=== PATIENT | female | born 1940 | race African-American/Black ===

== ENCOUNTER 2018-03-29 11:54 | Inpatient (IN) ==
[2018-03-29] MEDS ORDERED: PROMETHAZINE 25 MG/1 ML VIAL IM PRN (13:24)
[2018-03-29] MEDS ORDERED: BISACODYL 5 MG TABLET PO PRN (13:24)
[2018-03-29] MEDS ORDERED: MAGNESIUM HYDROXIDE SUSP 30 ML UDCUP PO PRN (13:24)
[2018-03-29] MEDS ORDERED: ONDANSETRON 4 MG/2 ML VIAL IV PRN (13:24)
[2018-03-30] MEDS: methylPREDNISolone SOD SUC 40 MG/1 ML VIAL IV SCH ×4 (10:17→20:59)
[2018-03-30] MEDS: ENOXAPARIN 30 MG/0.3 ML SYRINGE SUBCUT SCH ×2 (10:17→10:26)
[2018-03-30] MEDS: SODIUM CHLORIDE 0.45% 1,000 ML IV SCH ×3 (10:17→18:50)
[2018-03-30] MEDS: FAMOTIDINE 20 MG TABLET PO SCH (10:17)
[2018-03-30] MEDS: DOCUSATE SODIUM 100 MG CAPSULE PO SCH ×2 (10:26→20:06)
[2018-03-30] MEDS: cefTRIAXone 1,000 MG in SYRINGE 1 EACH IV SCH (10:27)
[2018-03-30] MEDS: AZITHROMYCIN INJ 250 MG in SODIUM CHLORIDE 0.9% 250 ML IV SCH (12:01)
[2018-03-30 14:03] LABS: Basophils % 0.3 % (0.0-0.8); Eosinophils # 0.1 10*3/uL (0.0-0.87); Hematocrit 34.5 VOL% (35.7-47.0); Hemoglobin 12.1 GM/DL (12.0-16.0); Immature Granulocytes % 0.6 %; Immature Granulocytes Absolute 0.04 #; Lymphocytes # 0.7 10*3/uL (1.4-4.0); Lymphocytes % 11.7 % (21.3-54.2); Mean Corpuscular HGB Conc 35.1 GM/DL (32-36); Mean Corpuscular Hemoglobin 31 PG (27-34); Mean Corpuscular Volume 87.1 FL (87-102); Mean Platelet Volume 10.2 FL (9.6-12.0); Monocytes # 0.2 10*3/uL (0.11-0.8); Monocytes % 2.7 % (1.7-12.7); Neutrophils # 5.2 10*3/uL (1.4-7.4); Neutrophils % 83.7 % (38.7-73.9); Platelet Count 235 T/CUMM (130-400); Red Blood Count 3.96 MC/CUMM (3.8-5.5); Red Cell Distribution Width 13.1 % (9.3-17.3); White Blood Count 6.2 T/CUMM (4-12)
[2018-03-30 14:26] LABS: Albumin 3.1 G/DL (3.4-5.0); Bilirubin,Total 0.9 MG/DL (0.2-1.0); Calcium 9.1 MG/DL (8.5-10.1); Osmolality,Calculated 272.1 MOS/KG (273-304); Potassium 3.9 MMOL/L (3.5-5.1); Total Protein 7.2 G/DL (6.4-8.3)
[2018-03-30] MEDS: ALBUTEROL/IPRATROPIUM 3 ML NEB RESP TX SCH ×2 (14:26→19:28)
[2018-03-30] MEDS: MELATONIN 3 MG TABLET PO SCH (20:06)
[2018-03-30] MEDS: CARVEDILOL 25 MG TABLET PO SCH (20:06)
[2018-03-31] MEDS: ALBUTEROL/IPRATROPIUM 3 ML NEB RESP TX SCH ×4 (00:33→19:35)
[2018-03-31] MEDS: SODIUM CHLORIDE 0.45% 1,000 ML IV SCH ×2 (02:39→16:32)
[2018-03-31] MEDS: ACETAMINOPHEN 325 MG TABLET PO PRN (02:43)
[2018-03-31] MEDS: FAMOTIDINE 20 MG TABLET PO SCH (06:31)
[2018-03-31] MEDS ORDERED: IPRATROPIUM 500 MCG/2.5 ML NEB RESP TX SCH (07:00)
[2018-03-31] MEDS ORDERED: LEVOTHYROXINE 50 MCG TABLET PO SCH (07:00)
[2018-03-31 07:45] LABS: Calcium 9.1 MG/DL (8.5-10.1); Osmolality,Calculated 272.1 MOS/KG (273-304); Potassium 4.2 MMOL/L (3.5-5.1)
[2018-03-31] MEDS: CYANOCOBALAMIN 500 MCG TABLET PO SCH (09:27)
[2018-03-31] MEDS: cefTRIAXone 1,000 MG in SYRINGE 1 EACH IV SCH (09:27)
[2018-03-31] MEDS: amLODIPine 10 MG TABLET PO SCH (09:27)
[2018-03-31] MEDS: SPIRONOLACTONE 25 MG TABLET PO SCH (09:27)
[2018-03-31] MEDS: LORATADINE 10 MG TABLET PO SCH (09:27)
[2018-03-31] MEDS: CARVEDILOL 25 MG TABLET PO SCH ×2 (09:27→20:15)
[2018-03-31] MEDS: DOCUSATE SODIUM 100 MG CAPSULE PO SCH ×2 (09:27→20:15)
[2018-03-31] MEDS: methylPREDNISolone SOD SUC 40 MG/1 ML VIAL IV SCH ×3 (09:28→21:14)
[2018-03-31] MEDS: ENOXAPARIN 30 MG/0.3 ML SYRINGE SUBCUT SCH (09:28)
[2018-03-31] MEDS: AZITHROMYCIN INJ 250 MG in SODIUM CHLORIDE 0.9% 250 ML IV SCH (11:05)
[2018-03-31] MEDS: MELATONIN 3 MG TABLET PO SCH (20:15)
[2018-04-01] MEDS: ALBUTEROL/IPRATROPIUM 3 ML NEB RESP TX SCH ×4 (00:42→19:30)
[2018-04-01] MEDS: SODIUM CHLORIDE 0.45% 1,000 ML IV SCH (06:00)
[2018-04-01] MEDS: LEVOTHYROXINE 75 MCG TABLET PO SCH (06:00)
[2018-04-01 07:34] LABS: Albumin 2.8 G/DL (3.4-5.0); Bilirubin,Total 0.7 MG/DL (0.2-1.0); Calcium 9.1 MG/DL (8.5-10.1); Osmolality,Calculated 276.7 MOS/KG (273-304); Potassium 4.1 MMOL/L (3.5-5.1); Total Protein 6.4 G/DL (6.4-8.3)
[2018-04-01] MEDS: cefTRIAXone 1,000 MG in SYRINGE 1 EACH IV SCH (08:51)
[2018-04-01] MEDS: DOCUSATE SODIUM 100 MG CAPSULE PO SCH ×2 (08:51→20:38)
[2018-04-01] MEDS: ENOXAPARIN 30 MG/0.3 ML SYRINGE SUBCUT SCH (08:51)
[2018-04-01] MEDS: CYANOCOBALAMIN 500 MCG TABLET PO SCH (08:51)
[2018-04-01] MEDS: CARVEDILOL 25 MG TABLET PO SCH ×2 (08:52→20:38)
[2018-04-01] MEDS: FAMOTIDINE 20 MG TABLET PO SCH (08:52)
[2018-04-01] MEDS: amLODIPine 10 MG TABLET PO SCH (08:52)
[2018-04-01] MEDS: SPIRONOLACTONE 25 MG TABLET PO SCH (08:52)
[2018-04-01] MEDS: LORATADINE 10 MG TABLET PO SCH (08:52)
[2018-04-01] MEDS: CLINDAMYCIN INJ 900 MG in PREMIX 1 EACH IV SCH ×2 (10:16→17:44)
[2018-04-01] MEDS: methylPREDNISolone SOD SUC 40 MG/1 ML VIAL IV SCH ×2 (10:16→21:30)
[2018-04-01] MEDS: AZITHROMYCIN INJ 250 MG in SODIUM CHLORIDE 0.9% 250 ML IV SCH (12:45)
[2018-04-01] MEDS: MELATONIN 3 MG TABLET PO SCH (20:38)
[2018-04-02] MEDS: ALBUTEROL/IPRATROPIUM 3 ML NEB RESP TX SCH ×4 (00:16→20:14)
[2018-04-02] MEDS: CLINDAMYCIN INJ 900 MG in PREMIX 1 EACH IV SCH ×3 (02:19→19:47)
[2018-04-02] MEDS: methylPREDNISolone SOD SUC 40 MG/1 ML VIAL IV SCH ×3 (06:08→21:42)
[2018-04-02] MEDS: LEVOTHYROXINE 75 MCG TABLET PO SCH (06:08)
[2018-04-02 07:44] LABS: Hematocrit 33.1 VOL% (35.7-47.0); Hemoglobin 11.5 GM/DL (12.0-16.0); Immature Granulocytes % 0.9 %; Immature Granulocytes Absolute 0.05 #; Lymphocytes # 0.7 10*3/uL (1.4-4.0); Lymphocytes % 12.5 % (21.3-54.2); Mean Corpuscular HGB Conc 34.7 GM/DL (32-36); Mean Corpuscular Hemoglobin 30 PG (27-34); Mean Corpuscular Volume 86.6 FL (87-102); Mean Platelet Volume 10.2 FL (9.6-12.0); Monocytes # 0.3 10*3/uL (0.11-0.8); Monocytes % 5.8 % (1.7-12.7); Neutrophils # 4.6 10*3/uL (1.4-7.4); Neutrophils % 80.8 % (38.7-73.9); Platelet Count 258 T/CUMM (130-400); Red Blood Count 3.82 MC/CUMM (3.8-5.5); Red Cell Distribution Width 13.4 % (9.3-17.3); White Blood Count 5.7 T/CUMM (4-12)
[2018-04-02 08:10] LABS: Calcium 9.2 MG/DL (8.5-10.1); Osmolality,Calculated 279.7 MOS/KG (273-304); Potassium 4.3 MMOL/L (3.5-5.1)
[2018-04-02] MEDS: cefTRIAXone 1,000 MG in SYRINGE 1 EACH IV SCH (08:47)
[2018-04-02] MEDS: CYANOCOBALAMIN 500 MCG TABLET PO SCH (08:49)
[2018-04-02] MEDS: CARVEDILOL 25 MG TABLET PO SCH ×2 (08:49→21:24)
[2018-04-02] MEDS: ENOXAPARIN 30 MG/0.3 ML SYRINGE SUBCUT SCH (08:49)
[2018-04-02] MEDS: DOCUSATE SODIUM 100 MG CAPSULE PO SCH ×2 (08:49→21:24)
[2018-04-02] MEDS: LORATADINE 10 MG TABLET PO SCH (08:49)
[2018-04-02] MEDS: SPIRONOLACTONE 25 MG TABLET PO SCH (08:49)
[2018-04-02] MEDS: FAMOTIDINE 20 MG TABLET PO SCH (08:49)
[2018-04-02] MEDS: AZITHROMYCIN INJ 250 MG in SODIUM CHLORIDE 0.9% 250 ML IV SCH (13:49)
[2018-04-02] MEDS: ACETAMINOPHEN 325 MG TABLET PO PRN (14:04)
[2018-04-02] MEDS: MELATONIN 3 MG TABLET PO SCH (21:24)
[2018-04-03] MEDS: ALBUTEROL/IPRATROPIUM 3 ML NEB RESP TX SCH ×4 (00:17→19:27)
[2018-04-03] MEDS: CLINDAMYCIN INJ 900 MG in PREMIX 1 EACH IV SCH ×3 (02:06→18:02)
[2018-04-03] MEDS: LEVOTHYROXINE 75 MCG TABLET PO SCH (06:06)
[2018-04-03] MEDS: methylPREDNISolone SOD SUC 40 MG/1 ML VIAL IV SCH ×3 (06:07→21:14)
[2018-04-03] MEDS: ENOXAPARIN 30 MG/0.3 ML SYRINGE SUBCUT SCH (10:08)
[2018-04-03] MEDS: SPIRONOLACTONE 25 MG TABLET PO SCH (10:09)
[2018-04-03] MEDS: DOCUSATE SODIUM 100 MG CAPSULE PO SCH ×2 (10:09→21:14)
[2018-04-03] MEDS: CYANOCOBALAMIN 500 MCG TABLET PO SCH (10:09)
[2018-04-03] MEDS: cefTRIAXone 1,000 MG in SYRINGE 1 EACH IV SCH (10:09)
[2018-04-03] MEDS: FAMOTIDINE 20 MG TABLET PO SCH (10:09)
[2018-04-03] MEDS: CARVEDILOL 25 MG TABLET PO SCH ×2 (10:10→21:14)
[2018-04-03] MEDS: LORATADINE 10 MG TABLET PO SCH (10:10)
[2018-04-03] MEDS: AZITHROMYCIN INJ 250 MG in SODIUM CHLORIDE 0.9% 250 ML IV SCH (11:05)
[2018-04-03] MEDS: MELATONIN 3 MG TABLET PO SCH (21:14)
[2018-04-04] MEDS: ALBUTEROL/IPRATROPIUM 3 ML NEB RESP TX SCH ×4 (00:19→20:44)
[2018-04-04] MEDS: CLINDAMYCIN INJ 900 MG in PREMIX 1 EACH IV SCH ×3 (02:48→17:09)
[2018-04-04 05:53] LABS: Calcium 9.3 MG/DL (8.5-10.1); Osmolality,Calculated 274.8 MOS/KG (273-304); Potassium 4.2 MMOL/L (3.5-5.1)
[2018-04-04] MEDS: methylPREDNISolone SOD SUC 40 MG/1 ML VIAL IV SCH ×3 (06:14→21:43)
[2018-04-04] MEDS: LEVOTHYROXINE 75 MCG TABLET PO SCH (06:14)
[2018-04-04] MEDS: cefTRIAXone 1,000 MG in SYRINGE 1 EACH IV SCH (09:34)
[2018-04-04] MEDS: DOCUSATE SODIUM 100 MG CAPSULE PO SCH ×2 (09:34→21:43)
[2018-04-04] MEDS: CYANOCOBALAMIN 500 MCG TABLET PO SCH (09:34)
[2018-04-04] MEDS: LORATADINE 10 MG TABLET PO SCH (09:35)
[2018-04-04] MEDS: FAMOTIDINE 20 MG TABLET PO SCH (09:35)
[2018-04-04] MEDS: ENOXAPARIN 30 MG/0.3 ML SYRINGE SUBCUT SCH (09:35)
[2018-04-04] MEDS: SPIRONOLACTONE 25 MG TABLET PO SCH (09:35)
[2018-04-04] MEDS: CARVEDILOL 25 MG TABLET PO SCH ×2 (09:35→21:43)
[2018-04-04] MEDS: AZITHROMYCIN INJ 250 MG in SODIUM CHLORIDE 0.9% 250 ML IV SCH (12:19)
[2018-04-04] MEDS: MELATONIN 3 MG TABLET PO SCH (21:43)
[2018-04-05] MEDS: ALBUTEROL/IPRATROPIUM 3 ML NEB RESP TX SCH ×4 (01:45→19:12)
[2018-04-05] MEDS: CLINDAMYCIN INJ 900 MG in PREMIX 1 EACH IV SCH ×3 (02:51→18:20)
[2018-04-05 05:57] LABS: Calcium 9.5 MG/DL (8.5-10.1); Osmolality,Calculated 280.7 MOS/KG (273-304); Potassium 4.4 MMOL/L (3.5-5.1)
[2018-04-05] MEDS: methylPREDNISolone SOD SUC 40 MG/1 ML VIAL IV SCH ×3 (06:17→21:47)
[2018-04-05] MEDS ORDERED: MIDAZOLAM 2 MG/2 ML VIAL ONE (06:50)
[2018-04-05] MEDS ORDERED: PROMETHAZINE 25 MG/1 ML VIAL IM ONE (07:00)
[2018-04-05] MEDS ORDERED: GLYCOPYRROLATE 0.4 MG/2 ML VIAL IM ONE (07:00)
[2018-04-05] MEDS ORDERED: MEPERIDINE 50 MG/1 ML VIAL IM ONE (07:00)
[2018-04-05] MEDS ORDERED: LIDOCAINE 2% VISCOUS 100 ML BOTTLE SWISH/SPIT ONE (07:30)
[2018-04-05] MEDS ORDERED: LIDOCAINE 1% 20 ML VIAL MISC INJ ONE (07:30)
[2018-04-05] MEDS ORDERED: LIDOCAINE 2% 20 ML VIAL RESP TX ONE (07:30)
[2018-04-05] MEDS ORDERED: MIDAZOLAM 2 MG/2 ML VIAL IV ONE (07:30)
[2018-04-05] MEDS: FAMOTIDINE 20 MG TABLET PO SCH (09:07)
[2018-04-05] MEDS: CYANOCOBALAMIN 500 MCG TABLET PO SCH (09:07)
[2018-04-05] MEDS: DOCUSATE SODIUM 100 MG CAPSULE PO SCH ×2 (09:08→21:47)
[2018-04-05] MEDS: LEVOTHYROXINE 75 MCG TABLET PO SCH (09:08)
[2018-04-05] MEDS: SPIRONOLACTONE 25 MG TABLET PO SCH (09:09)
[2018-04-05] MEDS: LORATADINE 10 MG TABLET PO SCH (09:09)
[2018-04-05] MEDS: ENOXAPARIN 30 MG/0.3 ML SYRINGE SUBCUT SCH (09:10)
[2018-04-05] MEDS: CARVEDILOL 25 MG TABLET PO SCH ×2 (09:11→21:47)
[2018-04-05] MEDS: cefTRIAXone 1,000 MG in SYRINGE 1 EACH IV SCH (09:12)
[2018-04-05] MEDS: AZITHROMYCIN INJ 250 MG in SODIUM CHLORIDE 0.9% 250 ML IV SCH (15:40)
[2018-04-05] MEDS: MELATONIN 3 MG TABLET PO SCH (21:46)
[2018-04-06] MEDS: ALBUTEROL/IPRATROPIUM 3 ML NEB RESP TX SCH ×4 (00:46→19:46)
[2018-04-06] MEDS: CLINDAMYCIN INJ 900 MG in PREMIX 1 EACH IV SCH ×2 (02:23→16:44)
[2018-04-06] MEDS: methylPREDNISolone SOD SUC 40 MG/1 ML VIAL IV SCH ×3 (06:39→22:01)
[2018-04-06] MEDS: LEVOTHYROXINE 75 MCG TABLET PO SCH (06:39)
[2018-04-06 06:52] LABS: Bilirubin,Total 0.7 MG/DL (0.2-1.0); Calcium 9.5 MG/DL (8.5-10.1); Potassium 4.8 MMOL/L (3.5-5.1); Total Protein 6.4 G/DL (6.4-8.3)
[2018-04-06] MEDS: FAMOTIDINE 20 MG TABLET PO SCH (10:09)
[2018-04-06] MEDS: ENOXAPARIN 30 MG/0.3 ML SYRINGE SUBCUT SCH (10:09)
[2018-04-06] MEDS: LORATADINE 10 MG TABLET PO SCH (10:10)
[2018-04-06] MEDS: DOCUSATE SODIUM 100 MG CAPSULE PO SCH ×2 (10:10→22:02)
[2018-04-06] MEDS: SPIRONOLACTONE 25 MG TABLET PO SCH (10:10)
[2018-04-06] MEDS: CYANOCOBALAMIN 500 MCG TABLET PO SCH (10:10)
[2018-04-06] MEDS: CARVEDILOL 25 MG TABLET PO SCH (10:18)
[2018-04-06] MEDS: AZITHROMYCIN INJ 250 MG in SODIUM CHLORIDE 0.9% 250 ML IV SCH (12:36)
[2018-04-06] MEDS: cefTRIAXone 1,000 MG in SYRINGE 1 EACH IV SCH (12:42)
[2018-04-06] MEDS: MELATONIN 3 MG TABLET PO SCH (22:02)
[2018-04-06] MEDS: CARVEDILOL 12.5 MG TABLET PO SCH (22:17)
[2018-04-07] MEDS: ALBUTEROL/IPRATROPIUM 3 ML NEB RESP TX SCH ×3 (00:04→12:35)
[2018-04-07] MEDS: CARVEDILOL 25 MG TABLET PO SCH (00:24)
[2018-04-07] MEDS: CLINDAMYCIN INJ 900 MG in PREMIX 1 EACH IV SCH ×3 (00:43→15:30)
[2018-04-07] MEDS: methylPREDNISolone SOD SUC 40 MG/1 ML VIAL IV SCH ×2 (05:37→15:30)
[2018-04-07] MEDS: LEVOTHYROXINE 75 MCG TABLET PO SCH (05:37)
[2018-04-07] MEDS: ENOXAPARIN 30 MG/0.3 ML SYRINGE SUBCUT SCH (09:08)
[2018-04-07] MEDS: cefTRIAXone 1,000 MG in SYRINGE 1 EACH IV SCH (09:08)
[2018-04-07] MEDS: CYANOCOBALAMIN 500 MCG TABLET PO SCH (09:09)
[2018-04-07] MEDS: FAMOTIDINE 20 MG TABLET PO SCH (09:09)
[2018-04-07] MEDS: LORATADINE 10 MG TABLET PO SCH (09:09)
[2018-04-07] MEDS: CARVEDILOL 12.5 MG TABLET PO SCH (09:09)
[2018-04-07] MEDS: SPIRONOLACTONE 25 MG TABLET PO SCH (09:09)
[2018-04-07] MEDS: DOCUSATE SODIUM 100 MG CAPSULE PO SCH (09:09)
[2018-04-07] MEDS: AZITHROMYCIN INJ 250 MG in SODIUM CHLORIDE 0.9% 250 ML IV SCH (11:47)
[2018-04-07 17:31] VITALS: BP 134/65
== END 2018-04-07 17:35 | disposition home or self-care (01) | DRG 194 ==
LOC: N.5E 03-30 08:35 → N.TELEN 04-04 17:30 → N.5E 04-04 17:43
PROVIDERS: ADMIT Internal Medicine; ATTEND Internal Medicine

== ENCOUNTER 2018-04-20 09:33 | Inpatient (IN) ==
[2018-04-20] MEDS ORDERED: ALBUTEROL 2.5 MG/3 ML NEB RESP TX STA (10:21)
[2018-04-20] MEDS ORDERED: ONDANSETRON ODT 4 MG TABLET PO PRN (10:21)
[2018-04-20] MEDS ORDERED: methylPREDNISolone SOD SUC 125 MG/2 ML VIAL IV STA (11:30)
[2018-04-20] MEDS ORDERED: LEVOFLOXACIN INJ 500 MG in PREMIX 1 EACH IV STA (11:30)
[2018-04-20 11:51] LABS: Albumin 2.7 G/DL (3.4-5.0); Bilirubin,Total 1.1 MG/DL (0.2-1.0); Calcium 8.5 MG/DL (8.5-10.1); Osmolality,Calculated 230.2 MOS/KG (273-304); Potassium 3.9 MMOL/L (3.5-5.1); Total Protein 6.5 G/DL (6.4-8.3); Troponin I Only 0.045 NG/ML (0.00-0.045)
[2018-04-20 12:02] LABS: Basophils % 0.1 % (0.0-0.8); Eosinophils % 0.1 % (0.00-10.9); Hematocrit 35.7 VOL% (35.7-47.0); Immature Granulocytes % 1.9 %; Immature Granulocytes Absolute 0.25 #; Lymphocytes # 0.9 10*3/uL (1.4-4.0); Lymphocytes % 6.3 % (21.3-54.2); Mean Corpuscular HGB Conc 37.8 GM/DL (32-36); Mean Corpuscular Hemoglobin 30 PG (27-34); Mean Corpuscular Volume 79.9 FL (87-102); Mean Platelet Volume 9.8 FL (9.6-12.0); Monocytes # 0.9 10*3/uL (0.11-0.8); Neutrophils # 11.3 10*3/uL (1.4-7.4); Neutrophils % 84.6 % (38.7-73.9); Platelet Count 185 T/CUMM (130-400); Red Blood Count 4.47 MC/CUMM (3.8-5.5); Red Cell Distribution Width 13.1 % (9.3-17.3); White Blood Count 13.4 T/CUMM (4-12)
[2018-04-20 12:18] LABS: Hemoglobin 13.5 GM/DL (12.0-16.0)
[2018-04-20 12:25] LABS: Hypochromasia 1+; Ovalocytes Slight; Platelet Estimate Adequate
[2018-04-20] MEDS ORDERED: FUROSEMIDE 20 MG/2 ML VIAL IV ONE ×2 (17:35→21:00)
[2018-04-20] MEDS: SODIUM CHLORIDE 0.9% 1,000 ML IV SCH (17:45)
[2018-04-20] MEDS: AZITHROMYCIN INJ 250 MG in SODIUM CHLORIDE 0.9% 250 ML IV SCH (18:45)
[2018-04-20] MEDS: ALBUTEROL/IPRATROPIUM 3 ML NEB RESP TX SCH (18:57)
[2018-04-20] MEDS ORDERED: NON-FORMULARY MEDICATION (Umeclidinium Bromide [Incruse Ellipta] 1 PUFF) INH SCH (21:00)
[2018-04-20] MEDS: CARVEDILOL 25 MG TABLET PO SCH (21:28)
[2018-04-20] MEDS: MELATONIN 3 MG TABLET PO SCH (21:28)
[2018-04-20] MEDS: methylPREDNISolone SOD SUC 40 MG/1 ML VIAL IV SCH (21:28)
[2018-04-20] MEDS: DOCUSATE SODIUM 100 MG CAPSULE PO SCH (21:29)
[2018-04-21] MEDS: ALBUTEROL/IPRATROPIUM 3 ML NEB RESP TX SCH ×4 (00:40→19:21)
[2018-04-21] MEDS: methylPREDNISolone SOD SUC 40 MG/1 ML VIAL IV SCH ×3 (05:55→20:53)
[2018-04-21] MEDS: LEVOTHYROXINE 75 MCG TABLET PO SCH (05:58)
[2018-04-21 08:19] LABS: Calcium 7.9 MG/DL (8.5-10.1); Osmolality,Calculated 241.5 MOS/KG (273-304); Potassium 3.5 MMOL/L (3.5-5.1)
[2018-04-21] MEDS ORDERED: FUROSEMIDE 20 MG/2 ML VIAL IV SCH (09:00)
[2018-04-21] MEDS: DOCUSATE SODIUM 100 MG CAPSULE PO SCH ×2 (09:21→20:53)
[2018-04-21] MEDS: CARVEDILOL 25 MG TABLET PO SCH ×2 (09:21→20:53)
[2018-04-21] MEDS: PANTOPRAZOLE 40 MG TABLET PO SCH (09:21)
[2018-04-21] MEDS: LORATADINE 10 MG TABLET PO SCH (09:21)
[2018-04-21] MEDS: SODIUM CHLORIDE 0.9% 1,000 ML IV SCH ×2 (09:23→20:53)
[2018-04-21] MEDS: cefTRIAXone 1,000 MG in SYRINGE 1 EACH IV SCH (09:31)
[2018-04-21 13:33] LABS: Total Protein,Body Fluid 3.4 G/DL
[2018-04-21 14:45] LABS: Lymphocytes,Pleural Fluid 58 %; Monocytes,Pleural Fluid 27 %; Neutrophils,Pleural Fluid 15 %; RBC,Pleural Fluid 19088 T/CUMM
[2018-04-21] MEDS: AZITHROMYCIN INJ 250 MG in SODIUM CHLORIDE 0.9% 250 ML IV SCH (17:48)
[2018-04-21] MEDS: ACETAMINOPHEN 325 MG TABLET PO PRN (18:31)
[2018-04-21] MEDS: MELATONIN 3 MG TABLET PO SCH (20:52)
[2018-04-22] MEDS: ALBUTEROL/IPRATROPIUM 3 ML NEB RESP TX SCH ×4 (00:20→20:20)
[2018-04-22] MEDS: methylPREDNISolone SOD SUC 40 MG/1 ML VIAL IV SCH ×3 (05:16→21:06)
[2018-04-22] MEDS: LEVOTHYROXINE 75 MCG TABLET PO SCH (06:14)
[2018-04-22 07:37] LABS: Calcium 7.6 MG/DL (8.5-10.1); Osmolality,Calculated 261.1 MOS/KG (273-304); Potassium 3.1 MMOL/L (3.5-5.1)
[2018-04-22] MEDS: PANTOPRAZOLE 40 MG TABLET PO SCH (08:39)
[2018-04-22] MEDS: CARVEDILOL 25 MG TABLET PO SCH ×2 (08:39→21:05)
[2018-04-22] MEDS: LORATADINE 10 MG TABLET PO SCH (08:39)
[2018-04-22] MEDS: DOCUSATE SODIUM 100 MG CAPSULE PO SCH ×2 (08:39→21:05)
[2018-04-22] MEDS: cefTRIAXone 1,000 MG in SYRINGE 1 EACH IV SCH (08:40)
[2018-04-22] MEDS: POTASSIUM CHLORIDE RIDER 10 MEQ in PREMIX 1 EACH IV SCH ×4 (12:56→16:05)
[2018-04-22] MEDS: SUCRALFATE 1 GM/10 ML UDCUP PO SCH ×2 (14:14→15:55)
[2018-04-22] MEDS: AZITHROMYCIN INJ 250 MG in SODIUM CHLORIDE 0.9% 250 ML IV SCH (18:09)
[2018-04-22] MEDS: MELATONIN 3 MG TABLET PO SCH (21:05)
[2018-04-23] MEDS: ALBUTEROL/IPRATROPIUM 3 ML NEB RESP TX SCH ×4 (02:02→19:20)
[2018-04-23] MEDS: LEVOTHYROXINE 75 MCG TABLET PO SCH (05:44)
[2018-04-23 06:26] LABS: Calcium 7.8 MG/DL (8.5-10.1); Osmolality,Calculated 270.4 MOS/KG (273-304)
[2018-04-23] MEDS: methylPREDNISolone SOD SUC 40 MG/1 ML VIAL IV SCH ×2 (09:45→12:18)
[2018-04-23] MEDS: CARVEDILOL 25 MG TABLET PO SCH ×2 (09:45→20:39)
[2018-04-23] MEDS: DOCUSATE SODIUM 100 MG CAPSULE PO SCH ×2 (09:46→20:39)
[2018-04-23] MEDS: POTASSIUM CHLORIDE 20 MEQ TABLET PO SCH (09:46)
[2018-04-23] MEDS: cefTRIAXone 1,000 MG in SYRINGE 1 EACH IV SCH (09:46)
[2018-04-23] MEDS: LORATADINE 10 MG TABLET PO SCH (09:46)
[2018-04-23] MEDS: PANTOPRAZOLE 40 MG TABLET PO SCH (09:46)
[2018-04-23] MEDS: SUCRALFATE 1 GM/10 ML UDCUP PO SCH ×2 (09:47→16:37)
[2018-04-23] MEDS: AZITHROMYCIN INJ 250 MG in SODIUM CHLORIDE 0.9% 250 ML IV SCH (17:52)
[2018-04-23] MEDS ORDERED: MAGNESIUM HYDROXIDE SUSP 30 ML UDCUP PO ONE (18:01)
[2018-04-23] MEDS: MELATONIN 3 MG TABLET PO SCH (20:39)
[2018-04-24] MEDS: ALBUTEROL/IPRATROPIUM 3 ML NEB RESP TX SCH ×4 (00:03→19:11)
[2018-04-24] MEDS: LEVOTHYROXINE 75 MCG TABLET PO SCH (06:11)
[2018-04-24] MEDS: methylPREDNISolone SOD SUC 40 MG/1 ML VIAL IV SCH (08:38)
[2018-04-24] MEDS: LORATADINE 10 MG TABLET PO SCH (08:38)
[2018-04-24] MEDS: DOCUSATE SODIUM 100 MG CAPSULE PO SCH ×2 (08:38→21:15)
[2018-04-24] MEDS: POTASSIUM CHLORIDE 20 MEQ TABLET PO SCH (08:38)
[2018-04-24] MEDS: cefTRIAXone 1,000 MG in SYRINGE 1 EACH IV SCH (08:38)
[2018-04-24] MEDS: PANTOPRAZOLE 40 MG TABLET PO SCH (08:38)
[2018-04-24] MEDS: CARVEDILOL 25 MG TABLET PO SCH ×2 (08:38→21:15)
[2018-04-24] MEDS: SUCRALFATE 1 GM/10 ML UDCUP PO SCH ×2 (08:38→16:04)
[2018-04-24] MEDS: AZITHROMYCIN INJ 250 MG in SODIUM CHLORIDE 0.9% 250 ML IV SCH (18:11)
[2018-04-24] MEDS: MELATONIN 3 MG TABLET PO SCH (21:15)
[2018-04-25] MEDS: ALBUTEROL/IPRATROPIUM 3 ML NEB RESP TX SCH ×4 (00:42→19:21)
[2018-04-25 06:45] LABS: Calcium 8.8 MG/DL (8.5-10.1); Osmolality,Calculated 271.1 MOS/KG (273-304); Potassium 5.1 MMOL/L (3.5-5.1)
[2018-04-25] MEDS: LEVOTHYROXINE 75 MCG TABLET PO SCH (07:01)
[2018-04-25] MEDS: LORATADINE 10 MG TABLET PO SCH (08:15)
[2018-04-25] MEDS: SUCRALFATE 1 GM/10 ML UDCUP PO SCH ×2 (08:15→16:25)
[2018-04-25] MEDS: CARVEDILOL 25 MG TABLET PO SCH ×2 (08:15→21:03)
[2018-04-25] MEDS: DOCUSATE SODIUM 100 MG CAPSULE PO SCH ×2 (08:15→21:03)
[2018-04-25] MEDS: PANTOPRAZOLE 40 MG TABLET PO SCH (08:15)
[2018-04-25] MEDS: cefTRIAXone 1,000 MG in SYRINGE 1 EACH IV SCH (08:16)
[2018-04-25] MEDS: methylPREDNISolone SOD SUC 40 MG/1 ML VIAL IV SCH (08:22)
[2018-04-25] MEDS: POTASSIUM CHLORIDE 20 MEQ TABLET PO SCH (10:45)
[2018-04-25] MEDS: AZITHROMYCIN INJ 250 MG in SODIUM CHLORIDE 0.9% 250 ML IV SCH (17:45)
[2018-04-25] MEDS: MELATONIN 3 MG TABLET PO SCH (21:03)
[2018-04-26] MEDS: ALBUTEROL/IPRATROPIUM 3 ML NEB RESP TX SCH ×4 (00:12→19:45)
[2018-04-26] MEDS: LEVOTHYROXINE 75 MCG TABLET PO SCH (06:49)
[2018-04-26] MEDS: SUCRALFATE 1 GM/10 ML UDCUP PO SCH ×2 (06:51→17:52)
[2018-04-26] MEDS: DOCUSATE SODIUM 100 MG CAPSULE PO SCH ×2 (09:46→21:00)
[2018-04-26] MEDS: POTASSIUM CHLORIDE 20 MEQ TABLET PO SCH (09:47)
[2018-04-26] MEDS: CARVEDILOL 25 MG TABLET PO SCH ×2 (10:39→21:00)
[2018-04-26] MEDS: LORATADINE 10 MG TABLET PO SCH (10:40)
[2018-04-26] MEDS: PANTOPRAZOLE 40 MG TABLET PO SCH (10:40)
[2018-04-26] MEDS: cefTRIAXone 1,000 MG in SYRINGE 1 EACH IV SCH (11:04)
[2018-04-26] MEDS: ACETAMINOPHEN 325 MG TABLET PO PRN ×2 (11:04→17:54)
[2018-04-26] MEDS: MEPERIDINE 25 MG/1 ML VIAL IV PRN (14:05)
[2018-04-26] MEDS: AZITHROMYCIN INJ 250 MG in SODIUM CHLORIDE 0.9% 250 ML IV SCH (18:48)
[2018-04-26] MEDS: MELATONIN 3 MG TABLET PO SCH (21:00)
[2018-04-27] MEDS: ALBUTEROL/IPRATROPIUM 3 ML NEB RESP TX SCH ×4 (00:47→19:10)
[2018-04-27] MEDS: LEVOTHYROXINE 75 MCG TABLET PO SCH (06:18)
[2018-04-27] MEDS: SUCRALFATE 1 GM/10 ML UDCUP PO SCH ×2 (09:16→16:32)
[2018-04-27] MEDS: cefTRIAXone 1,000 MG in SYRINGE 1 EACH IV SCH (09:16)
[2018-04-27] MEDS: POTASSIUM CHLORIDE 20 MEQ TABLET PO SCH (09:17)
[2018-04-27] MEDS: PANTOPRAZOLE 40 MG TABLET PO SCH (09:18)
[2018-04-27] MEDS: LORATADINE 10 MG TABLET PO SCH (09:18)
[2018-04-27] MEDS: CARVEDILOL 25 MG TABLET PO SCH ×2 (09:18→21:23)
[2018-04-27] MEDS: DOCUSATE SODIUM 100 MG CAPSULE PO SCH ×2 (09:18→21:23)
[2018-04-27] MEDS ORDERED: DOXYCYCLINE HYCLATE INJ 200 MG, LIDOCAINE 1% INJ 20 ML in STERILE WATER INJ 40 ML INTRAPLEUR ONE (10:00)
[2018-04-27] MEDS: MEPERIDINE 25 MG/1 ML VIAL IV PRN (10:11)
[2018-04-27] MEDS: AZITHROMYCIN INJ 250 MG in SODIUM CHLORIDE 0.9% 250 ML IV SCH (18:24)
[2018-04-27] MEDS: MELATONIN 3 MG TABLET PO SCH (21:23)
[2018-04-28] MEDS: ALBUTEROL/IPRATROPIUM 3 ML NEB RESP TX SCH ×4 (00:40→19:39)
[2018-04-28] MEDS: LEVOTHYROXINE 75 MCG TABLET PO SCH (06:03)
[2018-04-28 06:35] LABS: Calcium 8.7 MG/DL (8.5-10.1); Potassium 3.4 MMOL/L (3.5-5.1)
[2018-04-28 08:15] LABS: Eosinophils # 0.1 10*3/uL (0.0-0.87); Eosinophils % 0.8 % (0.00-10.9); Hematocrit 30.6 VOL% (35.7-47.0); Hemoglobin 10.4 GM/DL (12.0-16.0); Immature Granulocytes Absolute 0.17 #; Lymphocytes # 0.6 10*3/uL (1.4-4.0); Lymphocytes % 7.3 % (21.3-54.2); Mean Corpuscular Hemoglobin 30 PG (27-34); Mean Corpuscular Volume 87.2 FL (87-102); Mean Platelet Volume 10.4 FL (9.6-12.0); Monocytes # 0.8 10*3/uL (0.11-0.8); Monocytes % 9.4 % (1.7-12.7); Neutrophils # 6.8 10*3/uL (1.4-7.4); Neutrophils % 80.5 % (38.7-73.9); Red Blood Count 3.51 MC/CUMM (3.8-5.5); Red Cell Distribution Width 14.2 % (9.3-17.3); White Blood Count 8.4 T/CUMM (4-12)
[2018-04-28 08:17] LABS: Platelet Count 84 T/CUMM (130-400)
[2018-04-28 08:44] LABS: Hypochromasia 2+; Microcytosis 2+
[2018-04-28] MEDS ORDERED: methylPREDNISolone SOD SUC 40 MG/1 ML VIAL IV ONE (08:54)
[2018-04-28] MEDS ORDERED: methylPREDNISolone SOD SUC 40 MG/1 ML VIAL ONE (08:55)
[2018-04-28] MEDS ORDERED: ALBUTEROL/IPRATROPIUM 3 ML NEB RESP TX ONE (08:56)
[2018-04-28] MEDS ORDERED: MORPHINE 4 MG/1 ML VIAL IV ONE (09:19)
[2018-04-28] MEDS ORDERED: MORPHINE 4 MG/1 ML VIAL ONE (09:21)
[2018-04-28] MEDS: CARVEDILOL 25 MG TABLET PO SCH ×2 (10:06→20:37)
[2018-04-28] MEDS: PANTOPRAZOLE 40 MG TABLET PO SCH (10:30)
[2018-04-28] MEDS: DOCUSATE SODIUM 100 MG CAPSULE PO SCH ×2 (10:30→20:37)
[2018-04-28] MEDS: cefTRIAXone 1,000 MG in SYRINGE 1 EACH IV SCH (10:31)
[2018-04-28] MEDS: LORATADINE 10 MG TABLET PO SCH (10:31)
[2018-04-28] MEDS: POTASSIUM CHLORIDE 20 MEQ TABLET PO SCH (10:31)
[2018-04-28] MEDS: SUCRALFATE 1 GM/10 ML UDCUP PO SCH ×2 (10:34→16:32)
[2018-04-28] MEDS: AZITHROMYCIN INJ 250 MG in SODIUM CHLORIDE 0.9% 250 ML IV SCH (17:59)
[2018-04-28] MEDS: MELATONIN 3 MG TABLET PO SCH (20:37)
[2018-04-29] MEDS: ALBUTEROL/IPRATROPIUM 3 ML NEB RESP TX SCH ×4 (01:01→19:05)
[2018-04-29] MEDS: LEVOTHYROXINE 75 MCG TABLET PO SCH (06:58)
[2018-04-29] MEDS: CARVEDILOL 25 MG TABLET PO SCH ×2 (09:06→21:16)
[2018-04-29] MEDS: DOCUSATE SODIUM 100 MG CAPSULE PO SCH ×2 (09:06→21:16)
[2018-04-29] MEDS: POTASSIUM CHLORIDE 20 MEQ TABLET PO SCH (09:06)
[2018-04-29] MEDS: LORATADINE 10 MG TABLET PO SCH (09:06)
[2018-04-29] MEDS: PANTOPRAZOLE 40 MG TABLET PO SCH (09:06)
[2018-04-29] MEDS: SUCRALFATE 1 GM/10 ML UDCUP PO SCH ×2 (09:07→15:49)
[2018-04-29] MEDS ORDERED: LACTULOSE 20 GM/30 ML UDCUP PO PRN (09:21)
[2018-04-29] MEDS: cefTRIAXone 1,000 MG in SYRINGE 1 EACH IV SCH (15:49)
[2018-04-29] MEDS: AZITHROMYCIN INJ 250 MG in SODIUM CHLORIDE 0.9% 250 ML IV SCH (17:56)
[2018-04-29] MEDS: MELATONIN 3 MG TABLET PO SCH (21:16)
[2018-04-30] MEDS: ALBUTEROL/IPRATROPIUM 3 ML NEB RESP TX SCH ×4 (00:49→19:41)
[2018-04-30] MEDS: LEVOTHYROXINE 75 MCG TABLET PO SCH (06:49)
[2018-04-30] MEDS: CARVEDILOL 25 MG TABLET PO SCH ×2 (09:42→20:42)
[2018-04-30] MEDS: POTASSIUM CHLORIDE 20 MEQ TABLET PO SCH (09:42)
[2018-04-30] MEDS: DOCUSATE SODIUM 100 MG CAPSULE PO SCH ×2 (09:42→20:41)
[2018-04-30] MEDS: LORATADINE 10 MG TABLET PO SCH (09:42)
[2018-04-30] MEDS: PANTOPRAZOLE 40 MG TABLET PO SCH (09:42)
[2018-04-30] MEDS: SUCRALFATE 1 GM/10 ML UDCUP PO SCH ×2 (09:42→15:51)
[2018-04-30] MEDS: cefTRIAXone 1,000 MG in SYRINGE 1 EACH IV SCH (15:51)
[2018-04-30] MEDS: AZITHROMYCIN INJ 250 MG in SODIUM CHLORIDE 0.9% 250 ML IV SCH (18:33)
[2018-04-30] MEDS: MELATONIN 3 MG TABLET PO SCH (20:41)
[2018-05-01] MEDS: ALBUTEROL/IPRATROPIUM 3 ML NEB RESP TX SCH ×5 (00:49→23:53)
[2018-05-01 03:48] LABS: Basophils % 0.1 % (0.0-0.8); Eosinophils % 0.4 % (0.00-10.9); Hematocrit 29.1 VOL% (35.7-47.0); Hemoglobin 9.8 GM/DL (12.0-16.0); Immature Granulocytes % 1.7 %; Immature Granulocytes Absolute 0.12 #; Lymphocytes # 0.5 10*3/uL (1.4-4.0); Lymphocytes % 6.9 % (21.3-54.2); Mean Corpuscular HGB Conc 33.7 GM/DL (32-36); Mean Corpuscular Hemoglobin 30 PG (27-34); Mean Corpuscular Volume 89.3 FL (87-102); Monocytes # 0.5 10*3/uL (0.11-0.8); Monocytes % 6.4 % (1.7-12.7); Neutrophils % 84.5 % (38.7-73.9); Platelet Count 70 T/CUMM (130-400); Red Blood Count 3.26 MC/CUMM (3.8-5.5); Red Cell Distribution Width 14.3 % (9.3-17.3); White Blood Count 7.1 T/CUMM (4-12)
[2018-05-01 04:00] LABS: Calcium 8.4 MG/DL (8.5-10.1); Osmolality,Calculated 279.4 MOS/KG (273-304); Potassium 3.9 MMOL/L (3.5-5.1)
[2018-05-01 05:33] LABS: Band Neutrophils 1 % (0-10); Lymphocytes 6 % (20-55); Platelet Estimate Decreased; Segmented Neutrophils 89 % (50-85); Total Cells Counted 100
[2018-05-01] MEDS: LEVOTHYROXINE 75 MCG TABLET PO SCH (06:08)
[2018-05-01] MEDS: MEPERIDINE 25 MG/1 ML VIAL IV PRN (08:51)
[2018-05-01] MEDS: SUCRALFATE 1 GM/10 ML UDCUP PO SCH ×2 (08:52→16:17)
[2018-05-01] MEDS: CARVEDILOL 25 MG TABLET PO SCH ×2 (08:58→20:42)
[2018-05-01] MEDS: LORATADINE 10 MG TABLET PO SCH (08:58)
[2018-05-01] MEDS: POTASSIUM CHLORIDE 20 MEQ TABLET PO SCH (08:58)
[2018-05-01] MEDS: PANTOPRAZOLE 40 MG TABLET PO SCH (08:58)
[2018-05-01] MEDS: DOCUSATE SODIUM 100 MG CAPSULE PO SCH ×2 (08:58→20:42)
[2018-05-01] MEDS: cefTRIAXone 1,000 MG in SYRINGE 1 EACH IV SCH (16:17)
[2018-05-01] MEDS: AZITHROMYCIN INJ 250 MG in SODIUM CHLORIDE 0.9% 250 ML IV SCH (18:46)
[2018-05-01] MEDS: MELATONIN 3 MG TABLET PO SCH (20:42)
[2018-05-02] MEDS: LEVOTHYROXINE 75 MCG TABLET PO SCH (06:00)
[2018-05-02] MEDS: ALBUTEROL/IPRATROPIUM 3 ML NEB RESP TX SCH ×3 (07:55→19:28)
[2018-05-02] MEDS: PANTOPRAZOLE 40 MG TABLET PO SCH (09:46)
[2018-05-02] MEDS: POTASSIUM CHLORIDE 20 MEQ TABLET PO SCH (09:46)
[2018-05-02] MEDS: CARVEDILOL 25 MG TABLET PO SCH ×2 (09:46→20:25)
[2018-05-02] MEDS: SUCRALFATE 1 GM/10 ML UDCUP PO SCH ×2 (09:46→17:02)
[2018-05-02] MEDS: DOCUSATE SODIUM 100 MG CAPSULE PO SCH ×2 (09:46→20:25)
[2018-05-02] MEDS: LORATADINE 10 MG TABLET PO SCH (09:46)
[2018-05-02] MEDS: MEPERIDINE 25 MG/1 ML VIAL IV PRN (14:41)
[2018-05-02] MEDS: cefTRIAXone 1,000 MG in SYRINGE 1 EACH IV SCH (17:01)
[2018-05-02] MEDS: MEGESTROL 400 MG/10 ML UDCUP PO SCH (17:03)
[2018-05-02] MEDS: AZITHROMYCIN INJ 250 MG in SODIUM CHLORIDE 0.9% 250 ML IV SCH (18:32)
[2018-05-02] MEDS: MELATONIN 3 MG TABLET PO SCH (20:25)
[2018-05-02] MEDS ORDERED: MEGESTROL 400 MG/10 ML UDCUP PO SCH (21:00)
[2018-05-03] MEDS: ALBUTEROL/IPRATROPIUM 3 ML NEB RESP TX SCH ×4 (01:00→19:14)
[2018-05-03] MEDS: LEVOTHYROXINE 75 MCG TABLET PO SCH (06:05)
[2018-05-03] MEDS: MEPERIDINE 25 MG/1 ML VIAL IV PRN ×2 (06:43→17:13)
[2018-05-03] MEDS: CARVEDILOL 25 MG TABLET PO SCH ×2 (11:00→21:04)
[2018-05-03] MEDS: POTASSIUM CHLORIDE 20 MEQ TABLET PO SCH (11:00)
[2018-05-03] MEDS: LORATADINE 10 MG TABLET PO SCH (11:00)
[2018-05-03] MEDS: MEGESTROL 400 MG/10 ML UDCUP PO SCH ×2 (11:01→16:39)
[2018-05-03] MEDS: SUCRALFATE 1 GM/10 ML UDCUP PO SCH ×2 (11:01→16:39)
[2018-05-03] MEDS: PANTOPRAZOLE 40 MG TABLET PO SCH (11:01)
[2018-05-03] MEDS: DOCUSATE SODIUM 100 MG CAPSULE PO SCH ×2 (11:01→21:04)
[2018-05-03] MEDS: MELATONIN 3 MG TABLET PO SCH (21:04)
[2018-05-04] MEDS: ALBUTEROL/IPRATROPIUM 3 ML NEB RESP TX SCH ×4 (00:27→19:24)
[2018-05-04] MEDS: LEVOTHYROXINE 75 MCG TABLET PO SCH (05:39)
[2018-05-04] MEDS: MEPERIDINE 25 MG/1 ML VIAL IV PRN (10:33)
[2018-05-04] MEDS ORDERED: MIDAZOLAM 2 MG/2 ML VIAL IV ONE (10:39)
[2018-05-04] MEDS ORDERED: fentaNYL 100 MCG/2 ML VIAL IV ONE (10:39)
[2018-05-04] MEDS ORDERED: ceFAZolin 1,000 MG in SYRINGE 1 EACH IV ONE (10:39)
[2018-05-04 12:18] LABS: INR 1.2; PT Patient Result 12.9 SECS
[2018-05-04] MEDS: SUCRALFATE 1 GM/10 ML UDCUP PO SCH ×3 (12:32→16:26)
[2018-05-04] MEDS: MEGESTROL 400 MG/10 ML UDCUP PO SCH ×3 (12:32→16:26)
[2018-05-04] MEDS: DOCUSATE SODIUM 100 MG CAPSULE PO SCH ×2 (12:33→20:42)
[2018-05-04] MEDS ORDERED: LIDOCAINE 1%/EPI INJ 20 ML VIAL ONE (13:36)
[2018-05-04] MEDS ORDERED: fentaNYL 100 MCG/2 ML VIAL ONE (13:36)
[2018-05-04] MEDS ORDERED: MORPHINE 10 MG/1 ML VIAL ONE (14:06)
[2018-05-04] MEDS: MORPHINE 4 MG/1 ML VIAL IV PRN (14:27)
[2018-05-04] MEDS: POTASSIUM CHLORIDE 20 MEQ TABLET PO SCH ×2 (16:20→16:26)
[2018-05-04] MEDS: PANTOPRAZOLE 40 MG TABLET PO SCH ×2 (16:25→16:27)
[2018-05-04] MEDS: LORATADINE 10 MG TABLET PO SCH (16:26)
[2018-05-04] MEDS: CARVEDILOL 25 MG TABLET PO SCH ×2 (16:26→20:44)
[2018-05-04] MEDS: MELATONIN 3 MG TABLET PO SCH (20:42)
[2018-05-04] MEDS: ALPRAZolam 0.25 MG TABLET PO SCH (20:42)
[2018-05-05] MEDS: ALBUTEROL/IPRATROPIUM 3 ML NEB RESP TX SCH ×4 (00:06→20:12)
[2018-05-05] MEDS: MORPHINE 4 MG/1 ML VIAL IV PRN (05:38)
[2018-05-05] MEDS: LEVOTHYROXINE 75 MCG TABLET PO SCH (05:38)
[2018-05-05 06:59] LABS: Basophils % 0.1 % (0.0-0.8); Eosinophils % 0.2 % (0.00-10.9); Hematocrit 32.4 VOL% (35.7-47.0); Immature Granulocytes % 1.5 %; Immature Granulocytes Absolute 0.18 #; Lymphocytes # 1.3 10*3/uL (1.4-4.0); Lymphocytes % 10.8 % (21.3-54.2); Mean Corpuscular Hemoglobin 30 PG (27-34); Mean Platelet Volume 11.3 FL (9.6-12.0); Monocytes # 0.7 10*3/uL (0.11-0.8); Monocytes % 6.2 % (1.7-12.7); Neutrophils # 9.7 10*3/uL (1.4-7.4); Neutrophils % 81.2 % (38.7-73.9); Platelet Count 97 T/CUMM (130-400); Red Blood Count 3.68 MC/CUMM (3.8-5.5); Red Cell Distribution Width 14.2 % (9.3-17.3)
[2018-05-05] MEDS: CARVEDILOL 12.5 MG TABLET PO SCH ×3 (07:15→21:11)
[2018-05-05 07:21] LABS: Calcium 8.8 MG/DL (8.5-10.1); Osmolality,Calculated 278.7 MOS/KG (273-304)
[2018-05-05 07:23] LABS: Hypochromasia Slight; Ovalocytes Slight; Platelet Estimate Decreased
[2018-05-05 07:24] LABS: Microcytosis Slight
[2018-05-05] MEDS: LORATADINE 10 MG TABLET PO SCH (10:03)
[2018-05-05] MEDS: ALPRAZolam 0.25 MG TABLET PO SCH ×3 (10:03→21:12)
[2018-05-05] MEDS: MEGESTROL 400 MG/10 ML UDCUP PO SCH ×2 (10:03→16:15)
[2018-05-05] MEDS: SUCRALFATE 1 GM/10 ML UDCUP PO SCH ×2 (10:03→16:14)
[2018-05-05] MEDS: POTASSIUM CHLORIDE 20 MEQ TABLET PO SCH (10:03)
[2018-05-05] MEDS: DOCUSATE SODIUM 100 MG CAPSULE PO SCH ×2 (10:03→21:11)
[2018-05-05] MEDS: SERTRALINE 25 MG TABLET PO SCH (12:29)
[2018-05-05] MEDS: MELATONIN 3 MG TABLET PO SCH (21:11)
[2018-05-06] MEDS: ALBUTEROL/IPRATROPIUM 3 ML NEB RESP TX SCH ×4 (00:26→19:40)
[2018-05-06] MEDS: LEVOTHYROXINE 75 MCG TABLET PO SCH (05:31)
[2018-05-06 06:39] LABS: Calcium 8.4 MG/DL (8.5-10.1); Osmolality,Calculated 284.5 MOS/KG (273-304); Potassium 4.5 MMOL/L (3.5-5.1)
[2018-05-06] MEDS: SUCRALFATE 1 GM/10 ML UDCUP PO SCH ×2 (10:04→19:22)
[2018-05-06] MEDS: SERTRALINE 25 MG TABLET PO SCH (10:04)
[2018-05-06] MEDS: ALPRAZolam 0.25 MG TABLET PO SCH ×3 (10:04→20:19)
[2018-05-06] MEDS: DOCUSATE SODIUM 100 MG CAPSULE PO SCH ×2 (10:05→20:19)
[2018-05-06] MEDS: CARVEDILOL 6.25 MG TABLET PO SCH ×2 (10:05→20:20)
[2018-05-06] MEDS: MORPHINE 4 MG/1 ML VIAL IV PRN (13:50)
[2018-05-06] MEDS ORDERED: DILTIAZEM 100 MG VIAL.ADD IV ONE (14:05)
[2018-05-06] MEDS ORDERED: SODIUM CHLORIDE 0.9% 100 ML IV ONE (14:05)
[2018-05-06] MEDS ORDERED: SODIUM CHLORIDE 0.9% 1,000 ML IV ONE (14:20)
[2018-05-06] MEDS: DILTIAZEM INJ 100 MG in SODIUM CHLORIDE 0.9% 100 ML IV SCH ×2 (14:22→20:26)
[2018-05-06 14:51] LABS: ABG Base Excess -2.5 MMOL/L (-2.5-2.5); ABG HCO3 22.2 MMOL/L (20-26); ABG Oxygen Saturation 93.6 % (95-100); ABG PCO2 29.1 MM HG (35-48); ABG PH 7.456 (7.35-7.45); ABG PO2 68.6 MM HG (80-95); ABG TCO2 18.7 MMOL/L (23-27)
[2018-05-06 15:08] LABS: Calcium 8.5 MG/DL (8.5-10.1); Osmolality,Calculated 285.8 MOS/KG (273-304)
[2018-05-06] MEDS: PHENYLEPHRINE DRIP 40 MG/250 ML PREMIX IV PRN (21:35)
[2018-05-07] MEDS: ALBUTEROL/IPRATROPIUM 3 ML NEB RESP TX SCH ×4 (00:19→19:11)
[2018-05-07 05:08] LABS: Calcium 8.1 MG/DL (8.5-10.1); Osmolality,Calculated 289.4 MOS/KG (273-304); Potassium 4.6 MMOL/L (3.5-5.1)
[2018-05-07] MEDS: LEVOTHYROXINE 75 MCG TABLET PO SCH (06:02)
[2018-05-07] MEDS: SUCRALFATE 1 GM/10 ML UDCUP PO SCH ×2 (07:17→16:29)
[2018-05-07] MEDS: DOCUSATE SODIUM 100 MG CAPSULE PO SCH ×2 (08:07→20:59)
[2018-05-07] MEDS: CARVEDILOL 6.25 MG TABLET PO SCH ×2 (08:07→21:30)
[2018-05-07] MEDS: SERTRALINE 25 MG TABLET PO SCH (08:07)
[2018-05-07] MEDS: ALPRAZolam 0.25 MG TABLET PO SCH ×3 (08:07→21:30)
[2018-05-07] MEDS: MORPHINE 4 MG/1 ML VIAL IV PRN (14:00)
[2018-05-07] MEDS: PHENYLEPHRINE DRIP 40 MG/250 ML PREMIX IV PRN (15:20)
[2018-05-07] MEDS: DILTIAZEM INJ 100 MG in SODIUM CHLORIDE 0.9% 100 ML IV SCH (20:44)
[2018-05-08] MEDS: PHENYLEPHRINE DRIP 40 MG/250 ML PREMIX IV PRN ×3 (01:59→19:00)
[2018-05-08 04:31] LABS: Basophils % 0.1 % (0.0-0.8); Eosinophils # 0.1 10*3/uL (0.0-0.87); Eosinophils % 0.7 % (0.00-10.9); Hematocrit 27.6 VOL% (35.7-47.0); Hemoglobin 8.6 GM/DL (12.0-16.0); Immature Granulocytes % 1.7 %; Immature Granulocytes Absolute 0.15 #; Lymphocytes % 11.5 % (21.3-54.2); Mean Corpuscular HGB Conc 31.2 GM/DL (32-36); Mean Corpuscular Hemoglobin 29 PG (27-34); Mean Corpuscular Volume 93.2 FL (87-102); Mean Platelet Volume 11.2 FL (9.6-12.0); Monocytes # 0.7 10*3/uL (0.11-0.8); Monocytes % 7.6 % (1.7-12.7); NRBC # 0.05 10*3/uL; Neutrophils # 6.8 10*3/uL (1.4-7.4); Neutrophils % 78.4 % (38.7-73.9); Platelet Count 108 T/CUMM (130-400); Red Blood Count 2.96 MC/CUMM (3.8-5.5); Red Cell Distribution Width 14.6 % (9.3-17.3); White Blood Count 8.7 T/CUMM (4-12)
[2018-05-08 04:37] LABS: Calcium 8.7 MG/DL (8.5-10.1); Osmolality,Calculated 287.4 MOS/KG (273-304); Potassium 4.3 MMOL/L (3.5-5.1)
[2018-05-08] MEDS: ALBUTEROL/IPRATROPIUM 3 ML NEB RESP TX SCH ×4 (05:49→19:17)
[2018-05-08] MEDS: LEVOTHYROXINE 75 MCG TABLET PO SCH (06:29)
[2018-05-08] MEDS: MORPHINE 4 MG/1 ML VIAL IV PRN (07:50)
[2018-05-08] MEDS: SUCRALFATE 1 GM/10 ML UDCUP PO SCH ×2 (08:52→17:30)
[2018-05-08] MEDS: ALPRAZolam 0.25 MG TABLET PO SCH ×3 (10:06→20:17)
[2018-05-08] MEDS: DOCUSATE SODIUM 100 MG CAPSULE PO SCH ×2 (10:06→20:16)
[2018-05-08] MEDS: CARVEDILOL 6.25 MG TABLET PO SCH ×2 (10:06→20:17)
[2018-05-08] MEDS: DILTIAZEM INJ 100 MG in SODIUM CHLORIDE 0.9% 100 ML IV SCH (16:44)
[2018-05-09] MEDS: ALBUTEROL/IPRATROPIUM 3 ML NEB RESP TX SCH ×4 (00:52→18:51)
[2018-05-09 04:19] LABS: Eosinophils # 0.1 10*3/uL (0.0-0.87); Eosinophils % 1.2 % (0.00-10.9); Hematocrit 26.2 VOL% (35.7-47.0); Hemoglobin 8.6 GM/DL (12.0-16.0); Immature Granulocytes % 2.3 %; Immature Granulocytes Absolute 0.19 #; Lymphocytes # 1.2 10*3/uL (1.4-4.0); Lymphocytes % 14.4 % (21.3-54.2); Mean Corpuscular HGB Conc 32.8 GM/DL (32-36); Mean Corpuscular Hemoglobin 30 PG (27-34); Monocytes # 0.8 10*3/uL (0.11-0.8); Monocytes % 9.6 % (1.7-12.7); NRBC # 0.08 10*3/uL; Neutrophils # 5.9 10*3/uL (1.4-7.4); Neutrophils % 72.5 % (38.7-73.9); Platelet Count 103 T/CUMM (130-400); Red Blood Count 2.88 MC/CUMM (3.8-5.5); Red Cell Distribution Width 14.8 % (9.3-17.3); White Blood Count 8.2 T/CUMM (4-12)
[2018-05-09] MEDS: PHENYLEPHRINE DRIP 40 MG/250 ML PREMIX IV PRN ×2 (04:44→18:25)
[2018-05-09 04:49] LABS: Calcium 8.9 MG/DL (8.5-10.1); Osmolality,Calculated 288.3 MOS/KG (273-304); Potassium 4.4 MMOL/L (3.5-5.1)
[2018-05-09] MEDS: DILTIAZEM INJ 100 MG in SODIUM CHLORIDE 0.9% 100 ML IV SCH ×2 (05:18→18:23)
[2018-05-09] MEDS: LEVOTHYROXINE 75 MCG TABLET PO SCH (06:11)
[2018-05-09] MEDS: CARVEDILOL 6.25 MG TABLET PO SCH ×2 (08:25→20:58)
[2018-05-09] MEDS: SUCRALFATE 1 GM/10 ML UDCUP PO SCH ×2 (08:25→15:55)
[2018-05-09] MEDS: DOCUSATE SODIUM 100 MG CAPSULE PO SCH ×2 (08:25→20:58)
[2018-05-09] MEDS: ALPRAZolam 0.25 MG TABLET PO SCH ×4 (08:26→22:03)
[2018-05-10] MEDS: ALBUTEROL/IPRATROPIUM 3 ML NEB RESP TX SCH ×4 (00:26→20:43)
[2018-05-10 04:33] LABS: Basophils % 0.1 % (0.0-0.8); Eosinophils % 0.2 % (0.00-10.9); Hematocrit 26.5 VOL% (35.7-47.0); Hemoglobin 8.6 GM/DL (12.0-16.0); Immature Granulocytes Absolute 0.16 #; Lymphocytes % 12.9 % (21.3-54.2); Mean Corpuscular HGB Conc 32.5 GM/DL (32-36); Mean Corpuscular Hemoglobin 30 PG (27-34); Mean Corpuscular Volume 91.4 FL (87-102); Mean Platelet Volume 10.7 FL (9.6-12.0); Monocytes # 0.7 10*3/uL (0.11-0.8); Monocytes % 8.3 % (1.7-12.7); NRBC # 0.02 10*3/uL; Neutrophils # 6.2 10*3/uL (1.4-7.4); Neutrophils % 76.5 % (38.7-73.9); Platelet Count 122 T/CUMM (130-400); Red Cell Distribution Width 14.9 % (9.3-17.3); White Blood Count 8.1 T/CUMM (4-12)
[2018-05-10 04:52] LABS: Calcium 9.2 MG/DL (8.5-10.1); Osmolality,Calculated 287.1 MOS/KG (273-304); Potassium 4.7 MMOL/L (3.5-5.1)
[2018-05-10 05:17] LABS: Band Neutrophils 4 % (0-10); Hypochromasia 1+; Lymphocytes 7 % (20-55); Nucleated Red Blood Cells 1 (0-5); Platelet Estimate Normal; Segmented Neutrophils 84 % (50-85); Total Cells Counted 100
[2018-05-10 05:18] LABS: Microcytosis Slight
[2018-05-10] MEDS: LEVOTHYROXINE 75 MCG TABLET PO SCH (06:03)
[2018-05-10] MEDS: CARVEDILOL 6.25 MG TABLET PO SCH ×2 (09:00→20:22)
[2018-05-10] MEDS: ALPRAZolam 0.25 MG TABLET PO SCH ×4 (09:00→20:23)
[2018-05-10] MEDS: DOCUSATE SODIUM 100 MG CAPSULE PO SCH ×2 (09:00→20:22)
[2018-05-10] MEDS: SUCRALFATE 1 GM/10 ML UDCUP PO SCH ×2 (09:00→18:17)
[2018-05-10] MEDS: DILTIAZEM INJ 100 MG in SODIUM CHLORIDE 0.9% 100 ML IV SCH ×2 (09:31→23:30)
[2018-05-10] MEDS ORDERED: SKIN HEALING OINT (AQUAPHOR) 50 GM TUBE TOP PRN (11:16)
[2018-05-10] MEDS: METOPROLOL TARTRATE 5 MG/5 ML VIAL IV PRN (20:44)
[2018-05-11] MEDS: ALBUTEROL/IPRATROPIUM 3 ML NEB RESP TX SCH ×3 (01:44→13:15)
[2018-05-11 04:22] LABS: Basophils % 0.1 % (0.0-0.8); Eosinophils % 0.1 % (0.00-10.9); Hematocrit 26.7 VOL% (35.7-47.0); Hemoglobin 8.7 GM/DL (12.0-16.0); Immature Granulocytes % 2.1 %; Immature Granulocytes Absolute 0.17 #; Lymphocytes # 1.1 10*3/uL (1.4-4.0); Lymphocytes % 14.2 % (21.3-54.2); Mean Corpuscular HGB Conc 32.6 GM/DL (32-36); Mean Corpuscular Hemoglobin 30 PG (27-34); Mean Corpuscular Volume 90.8 FL (87-102); Mean Platelet Volume 10.8 FL (9.6-12.0); Monocytes # 0.6 10*3/uL (0.11-0.8); Monocytes % 7.3 % (1.7-12.7); Neutrophils % 76.2 % (38.7-73.9); Platelet Count 133 T/CUMM (130-400); Red Blood Count 2.94 MC/CUMM (3.8-5.5); White Blood Count 7.9 T/CUMM (4-12)
[2018-05-11 05:31] LABS: Calcium 9.1 MG/DL (8.5-10.1); Potassium 4.6 MMOL/L (3.5-5.1)
[2018-05-11] MEDS: LEVOTHYROXINE 75 MCG TABLET PO SCH (06:06)
[2018-05-11] MEDS: CARVEDILOL 6.25 MG TABLET PO SCH ×2 (08:07→22:07)
[2018-05-11] MEDS: ALPRAZolam 0.25 MG TABLET PO SCH ×3 (08:07→22:08)
[2018-05-11] MEDS: SUCRALFATE 1 GM/10 ML UDCUP PO SCH (08:07)
[2018-05-11] MEDS: DOCUSATE SODIUM 100 MG CAPSULE PO SCH (08:07)
[2018-05-11] MEDS: METOPROLOL TARTRATE 5 MG/5 ML VIAL IV PRN ×3 (13:01→21:37)
[2018-05-11] MEDS: MORPHINE 4 MG/1 ML VIAL IV PRN (14:24)
[2018-05-11] MEDS: DILTIAZEM INJ 100 MG in SODIUM CHLORIDE 0.9% 100 ML IV SCH (16:13)
[2018-05-12] MEDS: METOPROLOL TARTRATE 5 MG/5 ML VIAL IV PRN (01:05)
[2018-05-12] MEDS: CARVEDILOL 6.25 MG TABLET PO SCH (10:38)
[2018-05-12] MEDS ORDERED: LEVALBUTEROL 0.63 MG/3 ML NEB RESP TX PRN (11:59)
[2018-05-12] MEDS ORDERED: MORPHINE 4 MG/1 ML VIAL IV PRN (14:24)
[2018-05-12 17:41] VITALS: BP 103/57
== END 2018-05-12 16:19 | disposition hospice, inpatient (51) | DRG 180 ==
LOC: EDUNIT# → N.ED 09:33 → N.EDINP 11:53 → N.5E 15:49 → N.ICU 05-06 14:06 → N.5E 05-11 18:08
PROVIDERS: ADMIT Internal Medicine; ATTEND Internal Medicine

== ENCOUNTER 2018-05-12 11:51 | Inpatient (IN) ==
[2018-05-12 17:22] VITALS: BP 103/57
[2018-05-12] MEDS ORDERED: MORPHINE SL PRN (17:32)
[2018-05-12] MEDS ORDERED: ALBUTEROL 1.25 MG/3 ML NEB RESP TX PRN (17:42)
[2018-05-12] MEDS ORDERED: METOPROLOL TARTRATE 5 MG/5 ML VIAL IV PRN (18:21)
== END 2018-05-12 23:30 | disposition expired | DRG 951 ==
LOC: N.5E 11:51
PROVIDERS: ADMIT Internal Medicine; ATTEND Internal Medicine